=== PATIENT | male | born 1955 | race Caucasian/White ===

== ENCOUNTER 2018-07-25 18:39 | Inpatient (IN) | payer MEDICARE, MEDICAID ==
[~2018-07-25] VITALS: Ht 188 cm; Wt 109.3 kg
--- NOTE | 2018-07-25 18:46 | NUR ---
PT A/OX4, BIB PRIVATE AMBULANCE FROM [facility], FOR PSYCH EVAL. PER EMT'S REPORT, PT HAS A HX OF SCHIZOPHRENIA AND WENT AWOL FOR 2 DAYS. EMT ALSO REPORTS THAT THE PT "MAY NOT BE MED COMPLIANT". PT IS CALM AND COOPERATIVE. PT DENIES ANY COMPLAINT AT THIS TIME. VS WNL. PT DENIES PAIN, C/P, SOB, N/V/D, DIZZINESS, HEADACHE.
[2018-07-25] MEDS ORDERED: OLAN7.5T3 PO (18:53)
[2018-07-25] MEDS ORDERED: DIVA-78 PO (18:53)
[2018-07-25] MEDS ORDERED: GEMF600T5 PO (18:53)
[2018-07-25] MEDS ORDERED: DULO30CA2 PO (18:53)
[2018-07-25] MEDS ORDERED: ASPI-605 PO (18:53)
[2018-07-25] MEDS ORDERED: LOSA25TA27 PO (18:53)
[2018-07-25] MEDS ORDERED: AMLO5TAB9 PO (18:53)
[2018-07-25] MEDS ORDERED: FAMO-132 PO (18:53)
[2018-07-25 18:58] LABS: BASOPHILS # (AUTO) 0.1 K/uL (0.0-8.0); BASOPHILS % (AUTO) 0.7 % (0.0-2.0); EOSINOPHILS # (AUTO) 0.1 K/uL (0.0-0.7); EOSINOPHILS % (AUTO) 0.6 % (0.0-7.0); HEMATOCRIT 49.8 % (36.7-47.1); HEMOGLOBIN 16.6 g/dL (12.5-16.3); LYMPHOCYTES # (AUTO) 1.8 K/uL (20.0-40.0); LYMPHOCYTES % (AUTO) 21.1 % (20.5-51.5); MEAN CORPUSCULAR HEMOGLOBIN 29.9 uug (23.8-33.4); MEAN CORPUSCULAR HGB CONC 33 g/dL (32.5-36.3); MEAN CORPUSCULAR VOLUME 89.4 fL (73.0-96.2); MONOCYTES # (AUTO) 0.6 K/uL (2.0-10.0); MONOCYTES % (AUTO) 6.5 % (0.0-11.0); NEUTROPHILS # (AUTO) 6.2 K/uL (1.8-8.9); NEUTROPHILS % (AUTO) 71.1 % (38.5-71.5); PLATELET COUNT (AUTO) 167 K/uL (152-348); RED BLOOD CELL COUNT(AUTO) 5.57 MIL/uL (4.06-5.63); WHITE BLOOD COUNT (AUTO) 8.6 K/uL (3.6-10.2)
--- NOTE | 2018-07-25 19:01 | NUR ---
SHIFT REPORT GIVEN TO NISH Block RN.
[2018-07-25 19:03] LABS: CARBON DIOXIDE 25 mmol/L (21-32); CHLORIDE 102 mmol/L (98-107); CREATININE 1.1 mg/dL (0.6-1.3); GLUCOSE 264 mg/dL (74-106); POTASSIUM 3.9 mmol/L (3.5-5.1); UREA NITROGEN, BLOOD 25 mg/dL (7-18)
[2018-07-25 19:08] LABS: ALANINE AMINOTRANSFERASE 51 U/L (16-63); ALKALINE PHOSPHATASE 103 U/L (50-136); ASPARTATE AMINOTRANSFERASE 17 U/L (15-37); BILIRUBIN,DIRECT 0.1 mg/dL (0.0-0.2); BILIRUBIN,TOTAL 0.6 mg/dL (0.2-1.0); TOTAL PROTEIN, SERUM 7.1 g/dL (6.4-8.2)
[2018-07-25 19:09] LABS: ACETAMINOPHEN < 2.0 ug/mL (10-30)
[2018-07-25 19:10] LABS: ETHANOL < 3 MG/DL (0-0)
--- NOTE | 2018-07-25 19:14 | NUR ---
MEDICALLY CLEARED BY DR RING
--- NOTE | 2018-07-25 19:16 | NUR ---
ZAAR FIGUEROA FROM PET TEAM WILL COME IN 30MINS TO EVAL PATIENT
[2018-07-25 19:36] LABS: *BILIRUBIN,URIN NEGATIVE (NEGATIVE); *BLOOD, URINE NEGATIVE (NEGATIVE); *CLARITY,URINE CLEAR (CLEAR); *COLOR,URINE DARK YELLOW (YELLOW); *KETONES,URINE NEGATIVE (NEGATIVE); LEUKOCYTE ESTERASE ,URINE NEGATIVE (NEGATIVE); NITRITE, URINE NEGATIVE (NEGATIVE); PH,URINE 5.5 (5.0-8.0); UGLUCOSE 1+ (NEGATIVE)
--- NOTE | 2018-07-25 19:43 | NUR ---
ZARA FIGUEROA FROM PET TEAM HERE TO EVAL PATIENT
[2018-07-25 19:45] LABS: MUCUS,URINE MODERATE /LPF (0-FEW); SQUAMOUS EPITHELIAL CELL,UR FEW /HPF (NONE SEEN)
[2018-07-25 19:46] LABS: *AMPHETAMINE, URINE NEGATIVE (NEGATIVE); *BARBITURATE, URINE NEGATIVE (NEGATIVE); *CANNABINOID, URINE NEGATIVE (NEGATIVE); *COCCAINE, URINE NEGATIVE (NEGATIVE); *OPIATE, URINE NEGATIVE (NEGATIVE); *PHENCYCLIDINE SCREEN,URINE NEGATIVE (NEGATIVE)
--- NOTE | 2018-07-25 20:34 | NUR ---
PATIENT WAS SEARCH PER PROTOCOL BY SECRUITY.
--- NOTE | 2018-07-25 20:58 | NUR ---
TRANSFER[place] [facility]
[2018-07-25 21:00] VITALS: BP 160/89
[2018-07-25] MEDS ORDERED: TEMAZEPAM 7.5 MG CAPSULE PO PRN (21:00)
[2018-07-25] MEDS ORDERED: MAG HYDROX/AL HYDROX/SIMETH 30 ML LIQUID UDC PO PRN (21:00)
[2018-07-25] MEDS ORDERED: MAGNESIUM HYDROXIDE 30 ML LIQUID UDC PO PRN (21:00)
[2018-07-25] MEDS ORDERED: CLONAZEPAM 0.5 MG TABLET PO PRN (21:00)
[2018-07-25] MEDS ORDERED: ACETAMINOPHEN 325 MG TABLET PO PRN (21:00)
--- NOTE | 2018-07-25 21:00 | NUR ---
Admission note; Received patient from the ED. Alert and orientated. Admission process completed without any problems. Patient remained calm and cooperative. Shower given. Oriented patient to environment and answered all questions. Will continue to monitor patient throughout the night.
[2018-07-26 07:30] VITALS: BP 158/97
[2018-07-26] MEDS ORDERED: DEXTROSE 50% 50 ML DISP.SYRIN IV PRN (12:15)
[2018-07-26] MEDS: AMLODIPINE 5 MG TABLET PO SCH (12:18)
[2018-07-26] MEDS: LOSARTAN POTASSIUM 25 MG TABLET PO SCH (12:19)
[2018-07-26 16:00] VITALS: BP 140/91
[2018-07-26] MEDS ORDERED: BLOOD SUGAR DIAGNOSTIC 1 EACH STRIP VI SCH (16:30)
--- NOTE | 2018-07-26 16:36 | NUR ---
Initial Discharge Plan: Patient is a 63 year old male who is currently living at [facility] [[address] [place] [address]; ]. Per patient, he likes the facility, but may want new placement if possible. forestry workers called facility and left a message with Mellissa chronometer repairer, requesting that religious education coordinator, Sri Ovalles, call this telegraphic typewriter repairer back regarding patient returning to facility. forestry workers will follow-up as needed. forestry workers will continue to collaborate with patient, facility, and MD on a safe and proper discharge.
[2018-07-26] MEDS: BLOOD SUGAR DIAGNOSTIC 1 EACH STRIP VI SCH ×2 (17:36→21:04)
[2018-07-26] MEDS: FAMOTIDINE 20 MG TABLET PO SCH (18:06)
[2018-07-26] MEDS: GEMFIBROZIL 600 MG TABLET PO SCH (18:06)
[2018-07-26 19:51] VITALS: BP 143/42
[2018-07-26] MEDS: OLANZAPINE ZYDIS 5 MG TAB.RAPDIS PO SCH (21:00)
[2018-07-26] MEDS: DIVALPROEX 250 MG TABLET.DR PO SCH (21:00)
--- NOTE | 2018-07-26 21:05 | NUR ---
Patient refused to take all medications tonight. Patient stated " those are not the medications I am on. I do not take those. Do I need to get a clam shucker involved?" Patient also refused insulin. Patient becoming increasingly agitated.
[2018-07-27] MEDS: BLOOD SUGAR DIAGNOSTIC 1 EACH STRIP VI SCH ×4 (06:31→20:39)
[2018-07-27 07:30] VITALS: BP 160/95
[2018-07-27 07:47] LABS: THYROID STIMULATING HORMONE 0.966 mIU/mL (0.358-3.740)
[2018-07-27 08:30] VITALS: BP 160/95
[2018-07-27] MEDS: FAMOTIDINE 20 MG TABLET PO SCH ×2 (08:57→18:10)
[2018-07-27] MEDS: ASPIRIN EC 81 MG TABLET.DR PO SCH (08:57)
[2018-07-27] MEDS: LOSARTAN POTASSIUM 25 MG TABLET PO SCH (08:57)
[2018-07-27] MEDS: AMLODIPINE 5 MG TABLET PO SCH (08:57)
[2018-07-27] MEDS: GEMFIBROZIL 600 MG TABLET PO SCH ×2 (08:58→18:11)
[2018-07-27] MEDS: DIVALPROEX 250 MG TABLET.DR PO SCH ×2 (09:00→20:34)
[2018-07-27] MEDS: METFORMIN HCL 500 MG TABLET PO SCH ×2 (12:50→18:11)
[2018-07-27 16:00] VITALS: BP 144/99
[2018-07-27] MEDS: DULOXETINE 30 MG CAPSULE.DR PO SCH (18:10)
[2018-07-27] MEDS: OLANZAPINE ZYDIS 5 MG TAB.RAPDIS PO SCH (20:32)
[2018-07-27] MEDS: INSULIN REGULAR, HUMAN 300 UNIT/3 ML VIAL SQ PRN (20:40)
[2018-07-27 22:14] VITALS: BP 153/90
[2018-07-28] MEDS: BLOOD SUGAR DIAGNOSTIC 1 EACH STRIP VI SCH ×4 (06:34→20:28)
[2018-07-28 07:30] VITALS: BP 133/98
[2018-07-28] MEDS: DIVALPROEX 250 MG TABLET.DR PO SCH ×2 (09:00→20:20)
[2018-07-28] MEDS: AMLODIPINE 5 MG TABLET PO SCH (10:11)
[2018-07-28] MEDS: GEMFIBROZIL 600 MG TABLET PO SCH ×2 (10:12→18:09)
[2018-07-28] MEDS: LOSARTAN POTASSIUM 25 MG TABLET PO SCH (10:12)
[2018-07-28] MEDS: FAMOTIDINE 20 MG TABLET PO SCH ×2 (10:12→18:09)
[2018-07-28] MEDS: ASPIRIN EC 81 MG TABLET.DR PO SCH (10:12)
[2018-07-28] MEDS: METFORMIN HCL 500 MG TABLET PO SCH ×2 (10:13→18:09)
[2018-07-28 15:40] VITALS: BP 154/98
[2018-07-28] MEDS: DULOXETINE 30 MG CAPSULE.DR PO SCH (18:09)
[2018-07-28] MEDS: OLANZAPINE ZYDIS 5 MG TAB.RAPDIS PO SCH (20:21)
--- NOTE | 2018-07-28 20:30 | NUR ---
Pt refused scheduled HS Depakote 250mg, Pt stated, "Depakote is made with codeine, and I'm allergic to codeine." Pt educated on risks and benefits. HS BS 128, 2 units regular insulin administered per SS.
[2018-07-28] MEDS: INSULIN REGULAR, HUMAN 300 UNIT/3 ML VIAL SQ PRN (20:33)
[2018-07-28 20:41] VITALS: BP 150/64
[2018-07-28 20:44] VITALS: BP 123/83
[2018-07-29] MEDS: BLOOD SUGAR DIAGNOSTIC 1 EACH STRIP VI SCH ×4 (06:49→20:28)
[2018-07-29 07:30] VITALS: BP 152/95
[2018-07-29] MEDS: AMLODIPINE 5 MG TABLET PO SCH (09:00)
[2018-07-29] MEDS: DIVALPROEX 250 MG TABLET.DR PO SCH ×2 (09:00→20:04)
[2018-07-29] MEDS: METFORMIN HCL 500 MG TABLET PO SCH ×2 (09:00→16:09)
[2018-07-29] MEDS: ASPIRIN EC 81 MG TABLET.DR PO SCH (09:00)
[2018-07-29] MEDS: FAMOTIDINE 20 MG TABLET PO SCH ×2 (09:00→16:09)
[2018-07-29] MEDS: GEMFIBROZIL 600 MG TABLET PO SCH ×2 (09:01→16:09)
[2018-07-29] MEDS: LOSARTAN POTASSIUM 25 MG TABLET PO SCH (09:04)
--- NOTE | 2018-07-29 11:31 | NUR ---
AFTERNOON BLOOD SUGAR 237 REFUSED INSULIN SLIDING SALE COVERAGE. REQUESTS JUST TO HAVE HIS METFORMIN ONLY
[2018-07-29] MEDS: DULOXETINE 30 MG CAPSULE.DR PO SCH (16:09)
[2018-07-29 16:11] VITALS: BP 138/92
[2018-07-29] MEDS: INSULIN REGULAR, HUMAN 300 UNIT/3 ML VIAL SQ PRN (20:28)
[2018-07-29] MEDS: OLANZAPINE ZYDIS 5 MG TAB.RAPDIS PO SCH (20:30)
[2018-07-29 21:03] LABS: *BILIRUBIN,URIN NEGATIVE (NEGATIVE); *BLOOD, URINE NEGATIVE (NEGATIVE); *CLARITY,URINE CLEAR (CLEAR); *COLOR,URINE YELLOW (YELLOW); *KETONES,URINE NEGATIVE (NEGATIVE); *UROBILINOGEN,URINE 0.2 E.U./dl (NORMAL); LEUKOCYTE ESTERASE ,URINE NEGATIVE (NEGATIVE); NITRITE, URINE NEGATIVE (NEGATIVE); UGLUCOSE NEGATIVE (NEGATIVE)
[2018-07-29 21:08] LABS: RBC,URINE NONE SEEN /HPF (0-3); SQUAMOUS EPITHELIAL CELL,UR FEW /HPF (NONE SEEN); WBC,URINE 0-3 /HPF (0-3)
[2018-07-29 21:43] VITALS: BP 141/88
[2018-07-30] MEDS: BLOOD SUGAR DIAGNOSTIC 1 EACH STRIP VI SCH ×4 (06:43→20:13)
[2018-07-30] MEDS: INSULIN REGULAR, HUMAN 300 UNIT/3 ML VIAL SQ PRN ×4 (07:19→20:13)
[2018-07-30 07:30] VITALS: BP 149/93
[2018-07-30] MEDS: GEMFIBROZIL 600 MG TABLET PO SCH ×2 (08:42→16:11)
[2018-07-30] MEDS: DIVALPROEX 250 MG TABLET.DR PO SCH ×2 (08:42→20:29)
[2018-07-30] MEDS: ASPIRIN EC 81 MG TABLET.DR PO SCH (08:42)
[2018-07-30] MEDS: FAMOTIDINE 20 MG TABLET PO SCH ×2 (08:42→16:11)
[2018-07-30] MEDS: METFORMIN HCL 500 MG TABLET PO SCH ×2 (08:42→17:37)
[2018-07-30] MEDS: AMLODIPINE 5 MG TABLET PO SCH (08:43)
[2018-07-30] MEDS: LOSARTAN POTASSIUM 25 MG TABLET PO SCH (08:43)
[2018-07-30] MEDS: DULOXETINE 30 MG CAPSULE.DR PO SCH (16:11)
[2018-07-30 16:15] VITALS: BP 139/91
[2018-07-30] MEDS: OLANZAPINE ZYDIS 5 MG TAB.RAPDIS PO SCH (20:28)
[2018-07-30 20:50] VITALS: BP 146/87
[2018-07-31] MEDS: BLOOD SUGAR DIAGNOSTIC 1 EACH STRIP VI SCH ×4 (06:34→20:26)
[2018-07-31] MEDS: FAMOTIDINE 20 MG TABLET PO SCH ×2 (08:05→17:04)
[2018-07-31] MEDS: GEMFIBROZIL 600 MG TABLET PO SCH ×2 (08:05→17:04)
[2018-07-31] MEDS: METFORMIN HCL 500 MG TABLET PO SCH ×2 (08:05→17:04)
[2018-07-31] MEDS: AMLODIPINE 5 MG TABLET PO SCH (08:06)
[2018-07-31] MEDS: ASPIRIN EC 81 MG TABLET.DR PO SCH (08:06)
[2018-07-31] MEDS: LOSARTAN POTASSIUM 25 MG TABLET PO SCH (08:06)
[2018-07-31] MEDS: DIVALPROEX 250 MG TABLET.DR PO SCH (08:06)
[2018-07-31 15:12] VITALS: BP 137/92
[2018-07-31] MEDS: DULOXETINE 30 MG CAPSULE.DR PO SCH (17:04)
[2018-07-31] MEDS: OLANZAPINE ZYDIS 5 MG TAB.RAPDIS PO SCH (20:25)
[2018-07-31] MEDS: INSULIN REGULAR, HUMAN 300 UNIT/3 ML VIAL SQ PRN (20:26)
[2018-07-31 20:47] VITALS: BP 133/85
[2018-08-01] MEDS: BLOOD SUGAR DIAGNOSTIC 1 EACH STRIP VI SCH ×4 (06:35→20:33)
[2018-08-01 07:30] VITALS: BP 128/95
[2018-08-01] MEDS: AMLODIPINE 5 MG TABLET PO SCH (08:22)
[2018-08-01] MEDS: ASPIRIN EC 81 MG TABLET.DR PO SCH (08:22)
[2018-08-01] MEDS: LOSARTAN POTASSIUM 25 MG TABLET PO SCH (08:23)
[2018-08-01] MEDS: GEMFIBROZIL 600 MG TABLET PO SCH ×2 (08:23→17:06)
[2018-08-01] MEDS: FAMOTIDINE 20 MG TABLET PO SCH ×2 (08:24→17:06)
[2018-08-01] MEDS: METFORMIN HCL 500 MG TABLET PO SCH ×2 (08:24→17:06)
[2018-08-01] MEDS: INSULIN REGULAR, HUMAN 300 UNIT/3 ML VIAL SQ PRN (12:15)
--- NOTE | 2018-08-01 12:45 | NUR ---
Discharge planning: floor worker followed up with [facility] [[address] [place] [address]; ] regarding patient ability to return to facility. floor worker spoke with front desk assistant who stated that nursing coordinator, Sri, was no not in the office today. floor worker requested to speak with child care center administrator, Eulalio, however, he was in a meeting. service desk agent took a message to have Eulalio call this screenplay writer back. floor worker awaiting call back.
[2018-08-01 16:00] VITALS: BP 144/75
[2018-08-01] MEDS ORDERED: DULOXETINE 30 MG CAPSULE.DR PO SCH (17:00)
[2018-08-01] MEDS: DULOXETINE 60 MG CAPSULE.DR PO SCH (17:07)
[2018-08-01] MEDS: OLANZAPINE ZYDIS 5 MG TAB.RAPDIS PO SCH (20:23)
--- NOTE | 2018-08-01 20:34 | NUR ---
Bedtime Blood glucose level of 178. Patient refused sliding scale, stating that he only takes Metformin
[2018-08-01 20:57] VITALS: BP 123/88
[2018-08-02] MEDS: BLOOD SUGAR DIAGNOSTIC 1 EACH STRIP VI SCH ×4 (06:41→20:34)
--- NOTE | 2018-08-02 06:41 | NUR ---
Morning Blood glucose level of 148. Patient refused sliding scale coverage, stating that he only takes Metformin to control his glucose
[2018-08-02 07:30] VITALS: BP_SYST 139; BP_SYST 140; BP_DIAS 90; BP_DIAS 91
[2018-08-02] MEDS: ASPIRIN EC 81 MG TABLET.DR PO SCH (08:05)
[2018-08-02] MEDS: LOSARTAN POTASSIUM 25 MG TABLET PO SCH (08:05)
[2018-08-02] MEDS: FAMOTIDINE 20 MG TABLET PO SCH ×2 (08:05→17:10)
[2018-08-02] MEDS: METFORMIN HCL 500 MG TABLET PO SCH ×2 (08:05→17:10)
[2018-08-02] MEDS: AMLODIPINE 5 MG TABLET PO SCH (08:06)
[2018-08-02] MEDS: GEMFIBROZIL 600 MG TABLET PO SCH ×2 (08:15→17:10)
[2018-08-02] MEDS: INSULIN REGULAR, HUMAN 300 UNIT/3 ML VIAL SQ PRN (12:05)
--- NOTE | 2018-08-02 14:00 | NUR ---
Dr Sutherland at [facility] informed about patient blood sugar been elevated, patient on glucophage 500 mg BID and patient refused insulin sliding scale since admission with no new order.
[2018-08-02] MEDS: DULOXETINE 60 MG CAPSULE.DR PO SCH (17:12)
[2018-08-02 20:03] VITALS: BP 130/88
[2018-08-02] MEDS: OLANZAPINE ZYDIS 5 MG TAB.RAPDIS PO SCH (20:28)
[2018-08-03] MEDS: BLOOD SUGAR DIAGNOSTIC 1 EACH STRIP VI SCH ×2 (06:38→12:52)
[2018-08-03 07:30] VITALS: BP 120/85
[2018-08-03] MEDS: AMLODIPINE 5 MG TABLET PO SCH (08:13)
[2018-08-03] MEDS: METFORMIN HCL 500 MG TABLET PO SCH (08:13)
[2018-08-03] MEDS: GEMFIBROZIL 600 MG TABLET PO SCH (08:13)
[2018-08-03] MEDS: ASPIRIN EC 81 MG TABLET.DR PO SCH (08:13)
[2018-08-03 08:14] VITALS: BP 120/85
[2018-08-03] MEDS: LOSARTAN POTASSIUM 25 MG TABLET PO SCH (08:14)
[2018-08-03] MEDS: FAMOTIDINE 20 MG TABLET PO SCH (08:14)
--- NOTE | 2018-08-03 08:34 | NUR ---
DISCHARGE PLANNING Late Entry for 08/02/18 Pressure Steamer Tender followed up with [facility] [[phone]] and spoke with Mellissa, Aerodynamicist, regarding patient plan to return to the facility on 08/03/18. Per Mellissa, she needs to confirm with nursing. She stated she will call this bond writer back. Pressure Steamer Tender stated to Mellissa that patient will be discharged today and emphasized importance of return phone call. Pressure Steamer Tender awaiting return phone call and will follow up as needed.
--- NOTE | 2018-08-03 08:58 | NUR ---
Discharge Planning: After receiving no return call from [facility] Clean In Places Operator Mellissa, Ballroom Dance Instructor followed up regarding patient scheduled discharge for today and readmit status to facility. Per Mellissa, she continues to state she needs to speak with [facility]. She stated she will return call before 1200. Ballroom Dance Instructor will follow up as needed.
[2018-08-03] MEDS: INSULIN REGULAR, HUMAN 300 UNIT/3 ML VIAL SQ PRN (12:53)
--- NOTE | 2018-08-03 13:56 | NUR ---
DC Note: Patient will be discharged back to [facility] [[address] [place] [address]; ] and transportation will be provided taxi voucher at 3:30pm. Please arrange taxi pick-up for this patient. Patient is AxOx3 [person, place, and time], denies suicidal ideations, and is able to plan for basic self-care. sand car worker has called and spoken with Mima Liu, neighborhood coordinator, who states they are ready to accept the patient back to the facility today. Per Mima Lowery, patient will have medication management when he returns to facility. Per Patient, he sees Dr. Burger (psychiatrist) and Dr. Johnnie Whitaker (primary care physician. sand car worker attempted to confirm this with [facility] and is waiting to get confirmation from facility. sand car worker will update this note with information when received. If patient is in need of psychiatric follow-up sooner, she has been provided with a referral to [facility] [ [place] [address]; ] where patient can walk-in for appointment Monday thru Monday anytime between 8:00pm-5:00pm. Patient has been provided with mental health resources including [facility] [[address], [place] [address]; ], [facility] Crisis Line [ ], and National Suicide Prevention Lifeline [ ].
--- NOTE | 2018-08-03 14:56 | NUR ---
CALLED DORIAN ASSISTED, STATED PT'S PHARMAC[facility] IS [facility] [address] . CALLED IN PRESCRIPTIONS AND SPOKE TO PHARMACIST DB.
--- NOTE | 2018-08-03 15:08 | NUR ---
Firearms Reports: central office worker completed and submitted a [employer] firearms report for 5250 GD certification.
--- NOTE | 2018-08-03 15:54 | NUR ---
1530 Discharged instruction given to patient regarding medications to continue at the facility- patient verbalized understanding. Patient informed that facility is aware that he is coming back today and also all medications called in to his pharmacy. 1550 Discharged to [facility] by taxi. Patient alert and ox 3, denies SI/HI. No hallucination. No a/v hallucination noted
== END 2018-08-03 15:50 | DRG 885 ==
LOC: ER 18:43 → GPS 20:34
PROVIDERS: ADMIT Psychiatry & Neurology Psychiatry; ATTEND Internal Medicine
DX: F25.0 Schizoaffective disorder, bipolar type (principal); E11.65 Type 2 diabetes mellitus with hyperglycemia; E78.5 Hyperlipidemia, unspecified; G47.30 Sleep apnea, unspecified; K21.9 Gastro-esophageal reflux disease without esophagitis; Z79.899 Other long term (current) drug therapy; Z79.82 Long term (current) use of aspirin; G89.29 Other chronic pain; R82.998 Other abnormal findings in urine; Z65.3 Problems related to other legal circumstances; Z91.14 Patient's other noncompliance with medication regimen; I10 Essential (primary) hypertension
CPT/HCPCS: 36415; 71045; 80307; 84443; 85025; 86592; 87086; 93005; A4663; G0480; G0480-TC; J1815; J3490